=== PATIENT | female | born 1995 | race Caucasian/White ===

== ENCOUNTER 2017-09-01 18:34 | Emergency (ER) | payer BC ==
[~2017-09-01] VITALS: Ht 160 cm; Wt 69.4 kg
[2017-09-01 19:25] LABS: HEMATOCRIT 38.7 % (36.0-46.0); HEMOGLOBIN 13.1 G/DL (11.9-15.5); MCH 29.6 PG (29.0-34.0); MCHC 33.9 G/DL (30.0-36.0); MCV 87.6 FL (83-99); PLATELET COUNT 247 K/uL (156-360); RBC DIS.WIDTH-SD 41.5 % (39-53); RED BLOOD COUNT 4.42 M/uL (3.80-5.20); WHITE BLOOD COUNT 9.1 K/uL (4.1-10.2)
[2017-09-01 19:34] LABS: ALBUMIN 4.6 g/dL (3.2-4.8)
[2017-09-01 19:35] LABS: CHLORIDE 106 mEq/L (99-109); POTASSIUM 3.9 mEq/L (3.7-5.4); SODIUM 139 mEq/L (136-147)
[2017-09-01 19:37] LABS: GLUCOSE 95 mg/dL (70-99); TOTAL PROTEIN 7.9 g/dL (6.4-8.3)
[2017-09-01 19:39] LABS: TOTAL BILIRUBIN 0.4 mg/dL (0.0-1.0)
[2017-09-01 19:41] LABS: ALKALINE PHOSPHATASE 39 IU/L (3-129); CREATININE 0.8 mg/dL (0.6-1.3); GFR ESTIMATE (CALCULATED) > 59 mL/min/
[2017-09-01 19:42] LABS: UREA NITROGEN (BUN) 17 mg/dL (9-23)
[2017-09-01 19:43] LABS: AST (GOT) 16 IU/L (2-34)
[2017-09-01 19:44] LABS: ALT (GPT) 17 IU/L (3-49)
[2017-09-01 19:50] LABS: APPEARANCE SL.HAZY ((CLEAR)); BILIRUBIN NEGATIVE; BLOOD NEGATIVE; COLOR YELLOW ((YELLOW)); GLUCOSE (STRIP) NEGATIVE; KETONES NEGATIVE; LEUKOCYTES NEGATIVE; NITRITE NEGATIVE; PROTEIN (STRIP) NEGATIVE; SPECIFIC GRAVITY 1.025 (1.000-1.030); UROBILINOGEN 0.2 MG/DL (0.2-1.0)
[2017-09-01 19:50] LABS: QUANTITATIVE HCG 175.3 MIU/ML
[2017-09-01 20:15] LABS: BACTERIA RARE /HPF; EPITHELIAL CELLS RARE /HPF; MUCUS TRACE /LPF; RED BLOOD CELLS 0-5 /HPF (0-5); UCUL ADDED? NO; WHITE BLOOD CELLS 0-5 /HPF (0-5)
[2017-09-01] MEDS ORDERED: ZOFRAN ODT4 MG PO (21:21)
[2017-09-01 21:37] VITALS: BP 119/69
== END 2017-09-01 21:38 | disposition home or self-care (01) ==
LOC: EME 18:34
DX: O26.891 Other specified pregnancy related conditions, first trimester (principal); R51 Headache; Z3A.01 Less than 8 weeks gestation of pregnancy; Z88.2 Allergy status to sulfonamides
CPT/HCPCS: 80053; 81003; 84702; 85027; 99281; 99284

== ENCOUNTER 2017-09-16 08:44 | Emergency (ER) | payer BC ==
[~2017-09-16] VITALS: Ht 160 cm; Wt 70.1 kg
[~2017-09-16 08:44] MED LIST: ZOFRAN ODT4 MG PO
[2017-09-16 09:51] LABS: BASOPHIL (%) 0.2 % (0-1); EOSINOPHIL (%) 0.7 % (0-5); HEMATOCRIT 37.2 % (36.0-46.0); HEMOGLOBIN 12.7 G/DL (11.9-15.5); IMMATURE GRANULOCYTE (%) 0.3 % (0.0-0.7); LYMPHOCYTE (%) 32.1 % (15-42); LYMPHOCYTE COUNT 1.9 K/uL (1.0-2.8); MCHC 34.1 G/DL (30.0-36.0); MCV 87.7 FL (83-99); MONOCYTE (%) 6.1 % (3-12); MONOCYTE COUNT 0.4 K/uL (0-0.8); NEUTROPHIL (%) 60.6 % (45-76); NEUTROPHIL COUNT 3.5 K/uL (1.8-6.4); PLATELET COUNT 208 K/uL (156-360); RBC DIS.WIDTH-CV 13.1 % (11.8-14.6); RED BLOOD COUNT 4.24 M/uL (3.80-5.20); WHITE BLOOD COUNT 5.8 K/uL (4.1-10.2)
[2017-09-16 10:00] LABS: CHLORIDE 106 mEq/L (99-109); SODIUM 141 mEq/L (136-147)
[2017-09-16 10:01] LABS: GLUCOSE 98 mg/dL (70-99)
[2017-09-16 10:05] LABS: CREATININE 0.8 mg/dL (0.6-1.3); GFR ESTIMATE (CALCULATED) > 59 mL/min/
[2017-09-16 10:06] LABS: UREA NITROGEN (BUN) 11 mg/dL (9-23)
[2017-09-16 10:14] LABS: QUANTITATIVE HCG 5384.6 MIU/ML
[2017-09-16 11:16] VITALS: BP 105/64
== END 2017-09-16 11:29 | disposition home or self-care (01) ==
LOC: EME 08:44
PROVIDERS: Emergency Medicine
DX: O99.351 Diseases of the nervous system complicating pregnancy, first trimester (principal); G43.909 Migraine, unspecified, not intractable, without status migrainosus; Z3A.01 Less than 8 weeks gestation of pregnancy; Z88.2 Allergy status to sulfonamides
CPT/HCPCS: 80048; 84702; 85025; 99281; 99285; J2765; J7030